=== PATIENT | male | born 1960 | race Caucasian/White ===

== ENCOUNTER 2020-05-03 09:38 | Emergency (ER) | payer OTHER ==
[2020-05-03] MEDS ORDERED: Propofol 200 MG/20 ML SDV IV ONE (09:39)
[2020-05-03] MEDS ORDERED: Ketamine 500 mg/10 ML MDV IV ONE (09:39)
[2020-05-03] MEDS ORDERED: Lactated Ringers 1,000 ML IV ONE (09:54)
[2020-05-03] MEDS: Sodium Chloride 0.9% 10 ML Syringe FLUSH PRN ×2 (09:55→09:59)
[2020-05-03] MEDS ORDERED: Ketorolac 30 MG/ML SDV IVPUSH ONE (10:03)
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
[2020-05-03] MEDS ORDERED: Iopamidol 612 MG/ML 100 ML Bottle IVPUSH ONE (10:20)
[2020-05-03 10:22] LABS: ANION GAP 17.3 mEq/L (7-13); CHLORIDE,CL 100 mmol/L (98-107); SODIUM,NA 137 mmol/L (136-145)
[2020-05-03] MEDS ORDERED: Ondansetron 4 MG/2 ML SDV IVPUSH ONE (10:27)
[2020-05-03] MEDS ORDERED: HYDROmorphone 1 MG/ML Syringe IVPUSH ONE (10:27)
[2020-05-03 10:28] LABS: PTT,PARTIAL THROMBOPLSTIN TIME 23.2 SEC (22.0-34.0)
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
[2020-05-03] MEDS ORDERED: Lidocaine 1% with EPINEPHrine 1:100,000 20 ML MDV INJECT ONE (11:36)
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
== END 2020-05-03 12:30 ==
LOC: DL.ED 09:38
DX: S27.0XXA Traumatic pneumothorax, initial encounter (principal); S22.41XA Multiple fractures of ribs, right side, initial encounter for closed fracture; I10 Essential (primary) hypertension; Z79.899 Other long term (current) drug therapy
CPT/HCPCS: 00524; 36415; 70450; 71045; 71260; 72125; 74177; 80053; 80307; 83605; 84484; 85025; 85610; 85730; 93005; 96361; 96374; 96375; 99285; J1170; J1885; J2405; J2704; J7120; Q9967